=== PATIENT | male | born 1995 | race Caucasian/White ===

== ENCOUNTER 2017-03-02 07:13 | Emergency (ER) | payer BC ==
[~2017-03-02] VITALS: Ht 175.3 cm; Wt 98.9 kg
[~2017-03-02 07:13] MED LIST: NORCO 5-325 TA1 EACH PO
[2017-03-02] MEDS ORDERED: BACLOFEN10 MG PO (07:30)
[2017-03-02] MEDS ORDERED: IBUPROFEN800 MG PO (07:31)
[2017-03-02] MEDS ORDERED: NORCO 5-325 TA1 EACH PO (09:18)
[2017-03-02] MEDS ORDERED: METHYLPREDNISOLO4 M1 PO (09:18)
[2017-04-01] MEDS ORDERED: ELIQUIS5 MG PO (14:52)
[2017-04-01] MEDS ORDERED: ASPIRIN81 MG PO (14:53)
== END 2017-03-02 09:33 | disposition home or self-care (01) ==
LOC: ED 07:13
DX: M54.32 Sciatica, left side (principal); M79.605 Pain in left leg
CPT/HCPCS: 93971; 96372; 99284; J1885

== ENCOUNTER 2017-03-04 15:11 | Emergency (ER) | payer BC ==
[~2017-03-04] VITALS: Ht 175.3 cm; Wt 98.9 kg
[~2017-03-04 15:11] MED LIST changes: +BACLOFEN10 MG PO; +IBUPROFEN800 MG PO; +METHYLPREDNISOLO4 M1 PO
[2017-04-01] MEDS ORDERED: ELIQUIS5 MG PO (14:52)
[2017-04-01] MEDS ORDERED: ASPIRIN81 MG PO (14:53)
== END 2017-03-04 17:50 | disposition home or self-care (01) ==
LOC: ED 15:11
DX: I82.402 Acute embolism and thrombosis of unspecified deep veins of left lower extremity (principal); Z79.899 Other long term (current) drug therapy
CPT/HCPCS: 80053; 85025; 85610; 85730; 96374; 99283; J1644

== ENCOUNTER 2023-04-03 09:01 | Emergency (ER) | payer BC ==
[~2023-04-03] VITALS: Ht 175.3 cm; Wt 75.3 kg
[~2023-04-03 09:01] MED LIST changes: +ASPIRIN81 MG PO; +ELIQUIS5 MG PO
[2023-04-03] MEDS ORDERED: FLUOXETINE HCL20 MG (09:14)
--- OUTSIDE RECORDS SUMMARY | 2023-04-03 09:14 | XMS ---
PreManage Notification: DOMINICK CRUZ Security Television Actor Events No recent Security Events currently on file CRITERIA MET - Group Notification CARE PROVIDERS There are no care providers on record at this time. Rashawn has no Care Guidelines for this patient. Riya VISIT COUNT (12 MO.) 1 OLIVER Nguyen TOTAL 1 NOTE: Visits indicate total known visits. ED/C VISIT TRACKING (12 MO.) 04/03/2023 09:02 OLIVER Helm OR TYPE: Emergency COMPLAINT: - ARMS CURLED TIGHT, FACE TINGLY/NUMB, SLURRED TALK INPATIENT VISIT TRACKING (12 MO.) No inpatient visits to display in this time frame [email or web address]
[2023-04-03 10:28] LABS: BASOPHILS 0.5 % (0-2); EOSINOPHILS 0.2 % (0-6); HEMATOCRIT 43.6 % (35.0-50.0); HEMOGLOBIN 14.8 g/dL (12.0-18.0); LYMPHOCYTES 9.2 % (24-44); MCH 30.6 (27-36); MCHC 33.9 g/dl (30-36); MCV 90.2 fl (81-99); MONOCYTES 6.3 % (0-12); NEUTROPHILS 83.8 % (39-80); PLATELET COUNT 295 K/uL (140-440); RBC 4.83 M/ul (4.3-5.7)
[2023-04-03 10:42] LABS: ALBUMIN 4.8 g/dL (3.4-5.0); ALBUMIN/GLOBULIN RATIO 1.41 (1.1-2.4); BILIRUBIN, TOTAL 1.2 ng/dL (0.2-1.0); BUN/CREATININE RATIO 17.33 (6.0-28.6); CALCIUM 9.1 mg/dL (8.5-10.1); CREATININE, SERUM 0.75 mg/dL (0.70-1.30); PROTEIN, TOTAL 8.2 g/dL (6.4-8.2)
[2023-04-03 11:57] VITALS: BP 131/79
--- NOTE | 2023-04-03 22:47 | EKG ---
[facility] [address] [facility] [place] [address] Signed Normal sinus rhythm Normal ECG No previous ECGs available Confirmed by Kenia Adam MD () on 04/03/2023 10:46:49 PM Electronically Signed By: KENIA ADAM MD 04/03/23 2247 PATIENT NAME: DOMINICK CRUZ SAUL Electrocardiogram DATE OF : [birth year] PHYSICIAN: KENIA ADAM MD REPORT #: [id number] REPORT IS CONFIDENTIAL AND NOT TO BE RELEASED WITHOUT AUTHORIZATION
== END 2023-04-03 11:56 | disposition home or self-care (01) ==
LOC: ED 09:01
PROVIDERS: Emergency Medicine
DX: F45.8 Other somatoform disorders (principal); E87.6 Hypokalemia; Z79.82 Long term (current) use of aspirin
CPT/HCPCS: 36415; 80053; 85025; 85379; 96374; 99284-25; A9270; J2405